=== PATIENT | male | born 1985 | race African-American/Black ===

== ENCOUNTER 2021-11-01 11:32 | Emergency (ER) | payer MEDICAID ==
[~2021-11-01] VITALS: Ht 172.7 cm; Wt 69.0 kg
[2021-11-01] MEDS ORDERED: ALBUTEROL (0.083%) 2.5MG/3ML NEB HHN ONE (12:45)
[2021-11-01] MEDS ORDERED: P50 MT (12:46)
[2021-11-01] MEDS ORDERED: NEBU-270 MC (12:46)
[2021-11-01] MEDS ORDERED: ALBU6.7H3 INH (12:46)
[2021-11-01 13:49] VITALS: BP 112/68
== END 2021-11-01 13:50 | disposition home or self-care (01) ==
LOC: ER 11:32
DX: J45.901 Unspecified asthma with (acute) exacerbation (principal)
CPT/HCPCS: 94640; 99283; Z7610